=== PATIENT | female | born 2000 | race Caucasian/White ===

== ENCOUNTER 2023-04-26 08:27 | Emergency (ER) | payer SELFPAY ==
[2023-04-26 08:57] LABS: BASOPHILS % (AUTO) 0.5 %; EOSINOPHILS % (AUTO) 0.5 %; HCT - HEMATOCRIT 41.5 % (37.0-47.0); HGB - HEMOGLOBIN 13.6 g/dL (12.0-16.0); LYMPHOCYTES # (AUTO) 1.8 10^3/uL (1.5-3.5); LYMPHOCYTES % (AUTO) 31.1 %; MEAN CORPUSCULAR HEMOGLOBIN 29.4 pg (27.0-31.0); MEAN CORPUSCULAR HGB CONC 32.8 g/dL (32.0-36.0); MEAN CORPUSCULAR VOLUME 89.6 fL (81.0-99.0); MEAN PLATELET VOLUME 10.3 fL (7.9-10.8); MONOCYTES # (AUTO) 0.3 10^3/uL (0.0-1.0); MONOCYTES % (AUTO) 5.9 %; NEUTROPHILS # (AUTO) 3.6 10^3/uL (1.5-6.6); NEUTROPHILS % (AUTO) 61.8 %; PLT - PLATELET COUNT 218 10^3/uL (130-450); RED BLOOD COUNT 4.63 10^6/uL (4.20-5.40); RED CELL DISTRIBUTION WIDTH 11.6 % (12.0-15.0); WHITE BLOOD COUNT 5.8 x10^3/uL (4.8-10.8)
[2023-04-26 09:18] LABS: ALBUMIN 4.7 g/dL (3.2-5.5); BILIRUBIN,TOTAL 0.5 mg/dL (0.2-1.0); CALCIUM 9.6 mg/dL (8.5-10.3); CREATININE 0.6 mg/dL (0.6-1.3); POTASSIUM 3.7 mmol/L (3.5-4.5)
[2023-04-26] MEDS ORDERED: iohexoL-300 100 ML VIAL ONE (09:40)
[2023-04-26] MEDS ORDERED: KETOROLAC 15 MG/ML VIAL IVP STA (09:40)
[2023-04-26] MEDS ORDERED: MAG HYDROX/AL HYDROX/SIMETH 30 ML UDC PO STA (09:40)
[2023-04-26] MEDS ORDERED: SUCRALFATE 1 GM/10 ML UDC PO STA (09:40)
[2023-04-26] MEDS ORDERED: SODIUM CHLORIDE 0.9% 1,000 ML IV STA (09:40)
[2023-04-26] MEDS ORDERED: DICYCLOMINE 10 MG CAPSULE PO STA (09:40)
--- NOTE | 2023-04-26 09:41 | ED Physician Documentation ---
PD HPI ABD PAIN - Stated complaint Stated Complaint: ABD PX - Chief complaint Chief Complaint: Abd Pain - History obtained from History obtained from: Patient - Additional information Additional information: 22-year-old female with no reported past medical history presents for 4 months of periumbilical abdominal cramping. She states that usually resolves with massage of her stomach and self resolves, however this morning it was much worse than usual and not relieved with her usual mechanisms. States that she does smoke marijuana daily, ate [employer] last night, drinks alcohol approximately 3-4 times per week. Does not have a primary care physician and has never seen a GI doctor. Review of Systems Constitutional: denies: Fever, Chills Cardiac: denies: Chest pain / pressure, Palpitations, Calf pain Respiratory: denies: Dyspnea, Cough, Wheezing GI: reports: Abdominal Pain, Nausea. denies: Vomiting, Constipation, Diarrhea : denies: Dysuria, Frequency PD PAST MEDICAL HISTORY - Past Medical History Past Medical History: No - Past Surgical History Past Surgical History: No - Present Medications Home Medications: Ambulatory Orders Medication Instructions Recorded Confirmed Dicyclomine [Bentyl] 1 - 2 tab PO QID PRN #20 cap 04/26/23 Famotidine [Pepcid] 20 mg PO BID #60 tablet 04/26/23 Ondansetron Odt [Zofran] 4 mg TL Q6H PRN #30 tablet 04/26/23 Sucralfate [Carafate] 1 gm PO ACHS #60 tablet 04/26/23 - Allergies Allergies/Adverse Reactions: Allergies Allergy/AdvReac Type Severity Reaction Status Date / Time No Known Drug Allergies Allergy Verified 04/26/23 08:41 - Social History Does the pt smoke?: Yes Smoking Status: Light tobacco smoker Does the pt drink ETOH?: Yes ETOH Use: Other Does the pt have substance abuse?: No PD ED PE NORMAL - Vitals Vital signs reviewed: Yes - General General: Alert and oriented X 3, No acute distress, Well developed/nourished - HEENT HEENT: Atraumatic - Neck Neck: Supple, no meningeal sign - Cardiac Cardiac: RRR, Strong equal pulses - Respiratory Respiratory: No respiratory distress, Clear bilaterally - Abdomen Abdomen: Soft, Non distended, Other (Periumbilical and midepigastric tenderness to deep palpation) - Derm Derm: Normal color, Warm and dry, No rash - Extremities Extremities: No deformity, No tenderness to palpate, Normal ROM s pain, No edema - Neuro Neuro: Alert and oriented X 3, 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, No motor deficit, Normal speech - Psych Psych: Normal mood, Normal affect Results - Vitals Vitals: Vital Signs - 24 hr 04/26/23 04/26/23 04/26/23 08:38 10:41 12:00 Temperature 36.5 C Heart Rate 78 53 L 63 Respiratory 16 15 14 Rate Blood Pressure 118/75 114/73 112/71 O2 Saturation 100 98 100 Oxygen O2 Source Room air - Labs Labs: Laboratory Tests 04/26/23 04/26/23 04/26/23 08:50 08:52 08:52 WBC 5.8 RBC 4.63 Hgb 13.6 Hct 41.5 MCV 89.6 MCH 29.4 MCHC 32.8 RDW 11.6 L Plt Count 218 MPV 10.3 Neut # (Auto) 3.6 Lymph # (Auto) 1.8 [place] # (Auto) 0.3 Eos # (Auto) 0.0 Baso # (Auto) 0.0 Absolute Nucleated RBC 0.00 Nucleated RBC % 0.0 Sodium 137 Potassium 3.7 Chloride 106 Carbon Dioxide 25 Anion Gap 6.0 BUN 11 Creatinine 0.6 Estimated GFR (MDRD) 125 Glucose 101 Calcium 9.6 Total Bilirubin 0.5 AST 12 ALT 11 Alkaline Phosphatase 54 Total Protein 7.0 Albumin 4.7 Globulin 2.3 Albumin/Globulin Ratio 2.0 Lipase 21 Urine Color YELLOW Urine Clarity CLEAR Urine pH 6.0 Ur Specific [place] <=1.005 Urine Protein NEGATIVE Urine Glucose (UA) NEGATIVE Urine Ketones NEGATIVE Urine Occult Blood NEGATIVE Urine Nitrite NEGATIVE Urine Bilirubin NEGATIVE Urine Urobilinogen 0.2 (NORMAL) Ur Leukocyte Esterase NEGATIVE Ur Microscopic Review NOT INDICATED Urine Culture Comments NOT INDICATED Urine HCG, Qual NEGATIVE PD Medical Decision Making - ED course Complexity details: reviewed results, re-evaluated patient, considered differential, d/w patient ED course: Well-appearing patient with worsening of chronic abdominal pain. Abdomen is soft but she is markedly tender in the midepigastric and periumbilical regions of her abdomen. Vital signs unremarkable. Will perform labs and CT imaging. Laboratory work is reviewed, unremarkable. CT imaging negative for acute findings. Patient reports mild improvement after GI cocktail. Patient counseled of all lab and imaging findings at bedside, I recommended PCP follow- up as well as potential GI follow-up. In the meantime I recommended that patient decrease her acidic food intake, alcohol intake, and to initiate antacid therapy. Prescriptions for antacid and antispasmodics sent to pharmacy. Departure - Departure Disposition: 01 Home, Self Care Clinical Impression: Abdominal pain Qualifiers: Abdominal location: periumbilical Qualified Code(s): R10.33 - Periumbilical pain Condition: Stable Instructions: GERD Lifestyle Changes, ED Abdominal Pain Female Non-Specific Abdominal Pain Prescriptions: Dicyclomine [Bentyl] 1 - 2 tab PO QID PRN #20 cap PRN Reason: Abdominal Pain Sucralfate [Carafate] 1 gm PO ACHS #60 tablet Famotidine [Pepcid] 20 mg PO BID #60 tablet Ondansetron Odt [Zofran] 4 mg TL Q6H PRN #30 tablet PRN Reason: Nausea / Vomiting Forms: PCP List Discharge Date/Time: 04/26/23 12:04
[2023-04-26] MEDS ORDERED: LIDOCAINE VISCOUS 2% 15 ML UDC MM STA (09:44)
[2023-04-26 09:50] LABS: BILIRUBIN,URINE NEGATIVE (NEGATIVE); GLUCOSE, URINE (UA) NEGATIVE (NEGATIVE); KETONES,URINE (UA) NEGATIVE (NEGATIVE); LEUKOCYTE ESTERASE, URINE NEGATIVE (NEGATIVE); NITRITE,URINE NEGATIVE (NEGATIVE); OCCULT BLOOD,URINE NEGATIVE (NEGATIVE); PROTEIN,URINE NEGATIVE (NEGATIVE); UROBILINOGEN,URINE 0.2 (NORMAL) E.U./dL (NORMAL)
[2023-04-26 09:52] LABS: CLARITY,URINE CLEAR (CLEAR); HCG UR QUAL NEGATIVE
--- NOTE | 2023-04-26 11:21 | CT Report ---
PROCEDURE: ABDOMEN/PELVIS W INDICATIONS: MIDEPIGASTRIC PAIN CONTRAST: 100ml omni 300 TECHNIQUE: After the administration of contrast, 5 mm thick sections acquired from the diaphragms to the symphys is. 5 mm thick coronal and sagittal reformats were acquired. For radiation dose reduction, the foll owing was used: automated exposure control, adjustment of mA and/or kV according to patient size. COMPARISON: FINDINGS: Image quality: Excellent. Lung bases and heart: Unremarkable. Liver: Liver is enlarged with steatosis measuring 18.2 cm. Gallbladder and biliary tree: Unremarkable. Spleen: No splenomegaly. Pancreas: No pancreatic ductal dilation. Adrenals: No adrenal nodule. Kidneys and ureters: No hydronephrosis. No renal cystic lesion which requires follow up. No solid mas s. Bowel and peritoneum: No bowel distension. No pathologic free fluid. Scattered diverticula. A descend ing and proximal transverse colon are poorly distended, limiting evaluation. Lymph nodes: No central or retroperitoneal adenopathy. Vessels: No infrarenal aortic aneurysm. PELVIS Reproductive organs: Prominent vasculature is noted surrounding the uterus and adnexal structures. Bladder: No abnormal wall thickening, accounting for underdistension. Pelvic lymph nodes: No pelvic adenopathy by size criteria. Bones: No aggressive osseous abnormality. Other: No significant ventral or inguinal hernia. IMPRESSION: No acute intra-abdominal or pelvic process. Diverticulosis. Mild prominence of the pelvic vasculature as above. This can be seen with pelvic congestion syndrome and as clinically indicated, if symptomatic, further consult may be obtained. Reviewed by: Brittni Barry MD on 04/26/2023 11:19 AM [facility] Approved by: Brittni Barry MD on 04/26/2023 11:19 AM PST Station ID: [id number]
[2023-04-26 12:08] VITALS: BP 112/71; O2SAT 100
== END 2023-04-26 12:04 | disposition home or self-care (01) ==
LOC: ED 08:27
DX: R10.33 Periumbilical pain (principal); Z72.0 Tobacco use
CPT/HCPCS: 36415; 74177; 80053; 81003; 81025; 83690; 85025; 96374; 99283; 99284; A9270; Q9967; 81001; 87086